=== PATIENT | female | born 1995 | race Caucasian/White ===

== ENCOUNTER 2020-12-06 09:08 | Emergency (ER) | payer OTHER, SELFPAY ==
--- NOTE | ~2020-12-06 | CT_ITS ---
EXAMINATION: CT soft tissue neck w con EXAM DATE: 12/06/2020 11:56 INDICATION: Right-sided facial swelling and redness. Abscess. Symptoms 3 days. TECHNIQUE: Spiral CT of the neck was performed following intravenous injection of 75 mL Omnipaque 350 . Axial, coronal and sagittal images were reviewed. The dose-length product (DLP) for this examinat ion was 530.40 mGy-cm. The exposure was tailored according to patient size (auto mA exposure control ), and iterative reconstruction (ASIR) was used as additional dose reduction technique. There is no prior study for comparison. FINDINGS: There is right-sided cheek edema. No abscess. The thyroid gland is unremarkable. The sub mandibular and parotid glands are symmetric. There is no cervical lymphadenopathy. There are no ma sses identified. The superior mediastinum is unremarkable. The airway is unremarkable. Parapha ryngeal and pre-glottic fat planes are preserved. The opacified vasculature is patent. The orbits are unremarkable. Visualized sinuses and mastoid air cells are well aerated. Cervical spine is unremarkable. Lung apices are clear. IMPRESSION: Nonspecific right cheek swelling. No abscess. Reviewed, dictated and finalized at location B.
[2020-12-06 09:25] VITALS: BP 130/117; PULSE 98; RESP 18; TEMP 36.9; O2SAT 100
--- NOTE | 2020-12-06 09:27 | ED.DENTAL ---
HPI - Dental/Oral General Chief complaint: Dental/Oral Stated complaint: R FACIAL SWELLING/REDNESS Time Seen by Provider: 12/06/20 09:11 Source: patient, family and RN notes reviewed Mode of arrival: ambulatory Limitations: no limitations History of Present Illness HPI Narrative: Patient is a 25-year-old female who presents to emergency department for evaluation of right facial swelling for the last several days was seen at an outside hospital started on Keflex and given Tylenol with codeine. Patient notes that the redness has improved but the swelling persists is a moderate aching pain. Patient denies fever vomiting immunocompromise. On arrival patient does not appear uncomfortable this morning all she has taken his Keflex Related Data Allergies Allergy/AdvReac Type Severity Reaction Status Date / Time No Known Allergies Allergy Verified 12/06/20 09:32 Review of Systems Review of Systems: All systems reviewed & are unremarkable except as noted in HPI and below PMFSH Past Medical History Medical History (Updated 12/06/20 @ 13:08 by Franky Bean PA-C) Anxiety Exam Narrative: Exam Narrative: GENERAL: Well-appearing, well-nourished, and in no acute distress. HEAD: Normocephalic, atraumatic. Swelling of the right cheek with tenderness to palpation there is no erythema or fluctuance or drainable lesions that are obviously noted EYES: PERRLA and EOMI. ENT: Nares clear, no rhinorrhea or epistaxis. Mucous membranes moist. Oropharynx without tonsillar hypertrophy exudate. Tenderness along the right upper gumline with slight redness. Uvula midline no trismus or drooling NECK: Supple. No adenopathy or masses. CHEST: Clear to auscultation. No respiratory distress. No wheezes rales or rhonchi HEART: Regular rate and rhythm. No murmur heard. EXTREMITIES: Normal range of motion. No edema. SKIN: Warm, dry, no rash. NEURO: No focal deficits. Alert and oriented x3. Cranial nerves II through XII grossly intact. PSYCH: Normal mood and affect. Course Course Emergency Course: Patient is a 25-year-old female who presents to emergency department with facial swelling had already been on oral antibiotics was given clindamycin in the ER and will be placed on clindamycin for expanded coverage potential for facial abscess versus dental abscess. Discussion was made with plastic surgery who will see the patient on an outpatient basis patient was made aware of these recommendations and agrees to follow-up and will contact him today. Patient will also be following with her dentist this way she will be covered for potential abscess in the cheek versus dental abscess. Patient will be switched to clindamycin for more broad spectrum coverage. Patient noted feeling much better after her treatment in the emergency department. ABCs and vital signs intact and stable. Patient was offered inpatient therapy but however prefers to follow-up outpatient which was also the recommended option put forth by the plastic surgeon Consultations Consultation #1: Discussed case with Dr. Lazaro the plastic surgeon who will follow patient on an outpatient basis in clinic and feels that this is the acceptable option given the presentation and clinical findings Date: 12/06/20 Time: 13:06 Vital Signs Vital signs: Vital Signs Temperature 98.5 F 12/06/20 09:25 Pulse Rate 98 12/06/20 09:25 Respiratory Rate 18 12/06/20 09:25 Blood Pressure 130/117 H 12/06/20 09:25 Pulse Oximetry 100 12/06/20 09:25 Temperature 98.5 F 12/06/20 09:25 Pulse Rate 97 12/06/20 12:34 Respiratory Rate 16 12/06/20 12:34 Blood Pressure 120/90 12/06/20 12:34 Pulse Oximetry 100 12/06/20 12:34 Procedures Other Procedure Procedure 1: Other Procedure: An area to the right upper premolar is where there is tenderness to palpation in the oropharynx was I indeed with a single straight incision with an 18-gauge needle there was no purulence obtained [facility] - [facility]
[2020-12-06] MEDS: HYDROcodone/acetaminophen (*CRX) 5-325 MG TABLET 1 TAB PO (09:37)
[2020-12-06] MEDS: FAMOTIDINE 20 MG TABLET PO (09:37)
[2020-12-06] MEDS: IBUPROFEN 600 MG TABLET PO (09:38)
[2020-12-06] MEDS: CLINDAMYCIN 900 MG/D5W 50 ML 900 MG/50 ML PIGGYBACK 50 MG IVPB (11:16)
[2020-12-06 11:22] LABS: Basophils Percent Auto 0.3 % (0.2-1.2); Eosinophils Absolute Auto 0.1 K/mm3 (0-0.3); Eosinophils Percent Auto 0.7 % (0-4.4); Hematocrit 40.7 % (37.0-47.0); Hemoglobin 13.4 g/dL (12.0-15.0); Immature Granulocyte Absolute 0.08 K/mm3 (0.00-0.031); Immature Granulocyte Percent A 0.5 % (0-0.5); Lymphocytes Absolute Auto 3.69 K/mm3 (0.9-3.2); Lymphocytes Percent Auto 24.6 % (18.3-44.2); Mean Corpuscular HGB Conc 32.9 g/dl (32-36); Mean Corpuscular Hemoglobin 29.7 pg (26-34); Mean Corpuscular Volume 90.2 fl (80-100); Mean Platelet Volume 9.1 fl (7.4-10.4); Monocytes Absolute Auto 1.2 K/mm3 (0.1-0.6); Monocytes Percent Auto 7.9 % (2.6-8.5); Neutrophils Absolute Auto 9.9 K/mm3 (1.3-6.7); Platelet Count Result 316 k/mm3 (150-375); Red Blood Count 4.51 M/mm3 (4.2-5.4); Red Cell Distribution Width 12.5 % (11.5-14.5)
[2020-12-06 11:36] VITALS: BP 121/97; PULSE 98; RESP 17; O2SAT 100
[2020-12-06 11:39] LABS: Anion Gap 3 mmol/L (8-16); Blood Urea Nitrogen 6 mg/dL (7-17); Calcium 8.8 mg/dL (8.4-10.2); Carbon Dioxide 28 mmol/L (22-30); Chloride 105 mmol/L (98-107); Estimated CRCL calculation 118 ml/min; Estimated Glomerular Filt Rate > 60; Glucose 106 mg/dL (65-105); Potassium 4.1 mmol/L (3.4-5.0); Sodium 136 mmol/L (137-145)
[2020-12-06 12:15] LABS: CRP 5.2 mg/dL (<1.0)
[2020-12-06 12:34] VITALS: BP 120/90; PULSE 97; RESP 16; O2SAT 100
== END 2020-12-06 13:19 | disposition home or self-care (01) ==
PROVIDERS: Emergency Medicine Emergency Medical Services; Emergency Provider Emergency Medicine; PCP Nurse Practitioner Adult Health
DX: K04.7 Periapical abscess without sinus (principal)
CPT/HCPCS: 36415; 41800; 70491; 80048; 81025; 85025; 86140; 96365; 99284; A9270; Q9967

== ENCOUNTER → 2021-04-22 01:33 | Outpatient (CLI) | payer OTHER, SELFPAY ==
[2021-04-22 19:38] LABS: SARS-CoV-2 RNA PCR Negative
== END ==
PROVIDERS: PCP Nurse Practitioner Adult Health; Visit Provider Nurse Practitioner Adult Health
DX: R11.0 Nausea (principal); Z20.822 Contact with and (suspected) exposure to COVID-19
CPT/HCPCS: C9803; U0003; U0005

== ENCOUNTER → 2021-08-24 10:05 | Outpatient (CLI) | payer OTHER, SELFPAY ==
--- NOTE | ~2021-08-24 | MR_ITS ---
EXAMINATION: MR TMJS DATE: 08/24/2021 11:11 INDICATION: Temporomandibular joint arthritis TECHNIQUE: Magnetic resonance imaging (MRI) of the temporomandibular joints was performed without int ravenous contrast. Sequences included closed-mouth sagittal T2-weighted FSE and PD-weighted FSE and c oronal T1-weighted FSE and open-mouth sagittal T2-weighted FSE and PD-weighted FSE and coronal T1-aakash ghted FSE. COMPARISON: CT neck dated 12/06/2020 FINDINGS: The right temporomandibular joint demonstrates normal morphology of the mandibular condyle with no os teoarthritic changes. There is anterior displacement of the disk with mouth closed. There is normal a nterior translation of the right mandibular condyle in the open-mouth position with partial recapture of the disk. The posterior band of the medial side of the disc is normally positioned posterior to t he mandibular condyle but with the posterior band crossing across the proximal tip of the mandibular condyle and with the lateral side of the posterior band of the disc positioned anterior to the mandib ular condyle and with compressed appearance of the lateral side of the disc. There is mild thickening and minimal increased signal of the posterior band of the disc. The left temporomandibular joint demonstrates normal morphology of the mesentery condyle with no oste oarthritic changes. There is anterior displacement of the disk with mouth closed. There is normal mor phology of the disc. There is recapture of the disk with mouth open. IMPRESSION: 1. 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 Reviewed, dictated and finalized at location A. [facility] IMPRESSION: 1. 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
== END ==
PROVIDERS: Visit Provider Dentist General Practice
DX: M26.633 Articular disc disorder of bilateral temporomandibular joint (principal); M26.623 Arthralgia of bilateral temporomandibular joint; M26.69 Other specified disorders of temporomandibular joint
CPT/HCPCS: 70336